=== PATIENT | female | born 1980 | race American Indian/Alaskan Native ===

== ENCOUNTER 2017-07-09 22:37 | Emergency (ER) | payer SELFPAY ==
[2017-07-10 00:11] LABS: BUN/Creatinine Ratio 15.71; Blood Urea Nitrogen 11 mg/dL (7-17); Calcium 9.1 mg/dL (8.4-10.2); Carbon Dioxide 27 mmol/L (22-30); Chloride 100.4 mmol/L (98-107); Glucose 96 mg/dL (65-100); Potassium 4.1 mmol/L (3.6-5.0); Sodium 139 mmol/L (137-145)
[2017-07-10 00:14] LABS: Basophils % (Auto) 0.2 % (0.0-1.8); Eosinophils % (Auto) 0.6 % (0.0-4.3); Hematocrit 38.8 % (30.3-42.9); Hemoglobin 12.3 gm/dl (10.1-14.3); Mean Corpuscular HGB Conc 32 % (30-34); Mean Corpuscular Volume 79 fl (79-97); Platelet Count 284 K/mm3 (140-440); Red Blood Count 4.94 M/mm3 (3.65-5.03); Red Cell Distribution Width 13.7 % (13.2-15.2); White Blood Count 12.8 K/mm3 (4.5-11.0)
[2017-07-10 00:21] LABS: Mean Corpuscular Hemoglobin 25 pg (28-32)
[2017-07-10 00:24] LABS: Anion Gap 16 mmol/L
[2017-07-10 00:28] LABS: Bilirubin,Urine NEG (Negative); Blood,Urine MOD (Negative); Ketones,Urine NEG (Negative); Leukocyte Esterase,Urine TR (Negative); Mucus,Urine FEW /HPF; Nitrite,Urine NEG (Negative); Protein,Urine <15 mg/dL mg/dL (Negative); Urobilinogen,Urine < 2.0 mg/dL (<2.0)
[2017-07-10] MEDS ORDERED: TYLENOL PO ONE (02:21)
[2017-07-10] MEDS ORDERED: TYLENOL ONE (02:26)
--- NOTE | 2017-07-10 03:32 | Ultrasound Report ---
FINAL REPORT PROCEDURE: US TRANSVAGINAL TECHNIQUE: Real-time transabdominal sonography in multiple planes of the pelvis was performed. The pelvic structures, especially the ovaries were not optimally visualized. Transvaginal sonography was then performed to better evaluate the structures and/or abnormalities described below with image documentation. CPT 11943 and 33926 HISTORY: lower abd pain/vag spotting COMPARISON: No prior studies are available for comparison. FINDINGS: UTERUS Size: 8.3 x 3.6 x 3.9 cm. Endometrial thickness: 12 mm. The endometrial pattern is thickened with complex echogenicity. There appears to be a mass within the region of the cervical os. This measures approximately 3.2 x 1.3 x 2 centimeters. Further evaluation of this region with appropriate pelvic evaluation should be entertained. Orientation: anteverted. Cervix: Normal. Fibroids/masses: There appears to be a mixed echogenic area in the cervical os region which may represent a mass.. RIGHT Ovary: 3.6 x 2.8 x 3.1 cm. Appearance: The echogenicity is normal. No masses.. LEFT Ovary: 2.7 x 2.5 x 2.5 cm. Appearance: The echogenicity is normal. No masses.. Pelvic fluid: None. Other: None. IMPRESSION: There is a thickened endometrial pattern with complex echogenicity. There appears to be a mass in the region of the cervical os this measures approximately 3.2 x 1.3 x 2 centimeters. Further evaluation of this region with appropriate pelvic evaluation should be entertained.
--- NOTE | 2017-07-10 03:33 | Ultrasound Report ---
FINAL REPORT PROCEDURE: Pelvic ultrasound transabdominal and transvaginal TECHNIQUE: Real-time transabdominal sonography in multiple planes of the pelvis was performed. The pelvic structures, especially the ovaries were not optimally visualized. Transvaginal sonography was then performed to better evaluate the structures and/or abnormalities described below with image documentation. CPT 70546 and 79516 HISTORY: lower abd pain/vag spotting COMPARISON: No prior studies are available for comparison. FINDINGS: UTERUS Size: 8.3 x 3.6 x 3.9 cm. Endometrial thickness: 12 mm. The endometrial pattern is thickened with complex echogenicity. There appears to be a mass within the region of the cervical os. This measures approximately 3.2 x 1.3 x 2 centimeters. Further evaluation of this region with appropriate pelvic evaluation should be entertained. Orientation: anteverted. Cervix: Normal. Fibroids/masses: There appears to be a mixed echogenic area in the cervical os region which may represent a mass.. RIGHT Ovary: 3.6 x 2.8 x 3.1 cm. Appearance: The echogenicity is normal. No masses.. LEFT Ovary: 2.7 x 2.5 x 2.5 cm. Appearance: The echogenicity is normal. No masses.. Pelvic fluid: None. Other: None. IMPRESSION: There is a thickened endometrial pattern with complex echogenicity. There appears to be a mass in the region of the cervical os this measures approximately 3.2 x 1.3 x 2 centimeters. Further evaluation of this region with appropriate pelvic evaluation should be entertained.
[2017-07-10] MEDS ORDERED: MOTRIN PO ONE (04:48)
[2017-07-10] MEDS ORDERED: MORPHINE IV ONE ×2 (09:18→11:40)
[2017-07-10] MEDS ORDERED: NACL 0.9% 1000 ML 1,000 ML IV ONE (09:18)
--- NOTE | 2017-07-10 10:09 | Emergency Department Report ---
HPI - General Chief Complaint: Vaginal Bleeding Time Seen by Provider: 07/10/17 09:03 - HPI HPI: This is a 36 year-old female presents to the emergency department with a complaint of a 2 day history of lower abdominal pain and some vaginal bleeding/spotting. The patient's last menstrual period was in mid January and she has not had any vaginal bleeding since that time. She began having some sharp pain with radiation towards the back. It is associated with some nausea without vomiting. She took a home test 2 weeks ago and it was negative at that time. She denies any past medical history. Her primary care doctor is a Dr. Hamilton. She does not currently have an acute [facility] and has not had a Pap smear in about 2 years. She is not taking anything for her symptoms prior presentation. No recent travel or sick contacts at home. ED Past Medical Hx - Past Medical History Previous Medical History?: No - Surgical History Past Surgical History?: Yes Additional Surgical History: ORAL - Social History Smoking Status: Never Smoker Substance Use Type: Alcohol - Medications Home Medications: Home Medications Medication Instructions Recorded Confirmed Last Taken Type HYDROcodone/APAP 5-325 [[place] 1 each PO Q6HR PRN #10 tablet 07/10/17 Unknown Rx 5/325] ED Review of Systems ROS: Stated complaint: AB PAIN Other details as noted in HPI Comment: All other systems reviewed and negative Constitutional: denies: chills, fever Eyes: denies: eye pain, eye discharge, vision change ENT: denies: ear pain, throat pain Respiratory: denies: cough, shortness of breath, wheezing Cardiovascular: denies: chest pain, palpitations Gastrointestinal: abdominal pain, nausea. denies: vomiting Genitourinary: other (vaginal bleeding). denies: dysuria, discharge Musculoskeletal: back pain. denies: arthralgia Skin: denies: rash, lesions Neurological: denies: headache, weakness, paresthesias Physical Exam - Physical Exam Vital Signs: Vital Signs 07/09/17 07/10/17 07/10/17 23:25 06:39 09:00 Temperature 98.3 F 98.9 F Pulse Rate 87 79 83 Respiratory 16 12 16 Rate Blood Pressure 146/90 127/77 Blood Pressure 120/77 [Right] O2 Sat by Pulse 100 100 100 Oximetry Physical Exam: GENERAL: The patient is well-developed well-nourished. HENT: Normocephalic. Atraumatic. Patient has moist mucous membranes. EYES: Extraocular motions are intact. Pupils equal reactive to light bilaterally. NECK: Supple. Trachea is midline. CHEST/LUNGS: Clear to auscultation. There is no respiratory distress noted. HEART/CARDIOVASCULAR: Regular. There is no tachycardia. There is no gallop rub or murmur. ABDOMEN: Abdomen is soft, nontender. Unable to reproduce lower abdominal and/ or pelvic discomfort to palpation. No guarding or rebound tenderness. Patient has normal bowel sounds. There is no abdominal distention. SKIN: Skin is warm and dry. NEURO: The patient is awake, alert, and oriented. The patient is cooperative. The patient has no focal neurologic deficits. The patient has normal speech and gait. MUSCULOSKELETAL: There is no tenderness or deformity. There is no limitation range of motion. There is no evidence of acute injury. : There is no vaginal or cervical lesions seen. There is a small amount of blood seen in the vaginal vault. ED Course Vital Signs 07/09/17 07/10/17 07/10/17 23:25 06:39 09:00 Temperature 98.3 F 98.9 F Pulse Rate 87 79 83 Respiratory 16 12 16 Rate Blood Pressure 146/90 127/77 Blood Pressure 120/77 [Right] O2 Sat by Pulse 100 100 100 Oximetry ED Medical Decision Making - Lab Data Result diagrams: 07/09/17 23:37 07/09/17 23:37 - Radiology Data Radiology results: report reviewed PROCEDURE: US TRANSVAGINAL TECHNIQUE: Real-time transabdominal sonography in multiple planes of the pelvis was performed. The pelvic structures, especially the ovaries were not optimally visualized. Transvaginal sonography was then performed to better evaluate the structures and/or abnormalities described below with image documentation. CPT 71579 and 01524 HISTORY: lower abd pain/vag spotting COMPARISON: No prior studies are available for comparison. FINDINGS: UTERUS Size: 8.3 x 3.6 x 3.9 cm. Endometrial thickness: 12 mm. The endometrial pattern is thickened with complex echogenicity. There appears to be a mass within the region of the cervical os. This measures approximately 3.2 x 1.3 x 2 centimeters. Further evaluation of this region with appropriate pelvic evaluation should be entertained. Orientation: anteverted. Cervix: Normal. Fibroids/masses: There appears to be a mixed echogenic area in the cervical os region which may represent a mass.. RIGHT Ovary: 3.6 x 2.8 x 3.1 cm. Appearance: The echogenicity is normal. No masses.. LEFT Ovary: 2.7 x 2.5 x 2.5 cm. Appearance: The echogenicity is normal. No masses.. Pelvic fluid: None. Other: None. IMPRESSION: There is a thickened endometrial pattern with complex echogenicity. There appears to be a mass in the region of the cervical os this measures approximately 3.2 x 1.3 x 2 centimeters. Further evaluation of this region with appropriate pelvic evaluation should be entertained. CT scan of the abdomen and pelvis with IV contrast: History: Abdominal pain. Findings: Normal lung bases. No pleural pericardial effusion. Normal liver spleen pancreas and gallbladder. Normal adrenals, kidneys and bladder. No free intraperitoneal fluid or. No evidence of adenopathy. Fluid identified in the endometrium. Enlargement in left ovary measuring approximate 4 cm in maximum diameter. Cysts cannot be excluded. The appendix not visualized well no evidence of appendicitis. No evidence of diverticulitis. Gaseous colon with moderate volume stool in colon. No bowel distention. Impression: Moderate amount of fluid in the endometrium. Suspected maybe cysts in the right and left ovary. Transcribed By: PTP Dictated By: JOE GRIMM MD Electronically Authenticated By: JOE GRIMM MD Signed Date/Time: 07/10/17 1053 - Medical Decision Making 36-year-old female presents to the emergency department with a 2 day history of some lower abdominal and/or pelvic discomfort as well as some mild vaginal bleeding. The patient has not had a menstrual cycle in about 4-5 months but her beta hCG is negative for current . The rest labs are mostly unremarkable. A transvaginal ultrasound was done that came back showing concern for a 3 cm endocervical mass. For further evaluation, a CT of the abdomen and pelvis with IV contrast was done that shows ovarian cyst and some endometrial fluid. There was no mass or soft tissue abnormality seen on pelvic examination. Vital signs stable. Patient was given some pain control and will be given multiple referrals for [facility] for further differentiation of these deferring imaging studies. However the patient does appear safe for discharge home at this time. - Differential Diagnosis , fibroids, malignancy, dysfunctional uterine bleeding Critical Care Time: No Critical care attestation.: If time is entered above; I have spent that time in minutes in the direct care of this critically ill patient, excluding procedure time. ED Disposition Clinical Impression: Pelvic pain, Dysfunctional uterine bleeding, Mass of cervix determined by ultrasound Ovarian cyst Qualifiers: Laterality: unspecified laterality Qualified Code(s): N83.209 - Unspecified ovarian cyst, unspecified side Disposition: TO HOME OR SELFCARE Is pt being admited?: No Condition: Stable Instructions: Dysfunctional Uterine Bleeding (ED), Ovarian Cyst (ED), Abdominal Pain (ED) Additional Instructions: Please follow up with an [facility] in the near future regarding your pelvic pain, ovarian cyst, dysfunctional uterine bleeding, and the cervical mass seen on ultrasound. Return to the emergency Department with any worsening of her symptoms or any acute distress. You have been prescribed a medication that is sedating and therefore should not be taken prior to driving, working, and responsible for children and in no way should be mixed with alcohol of any quantity. Prescriptions: HYDROcodone/APAP 5-325 [[place] 5/325] 1 each PO Q6HR PRN #10 tablet PRN Reason: Pain Referrals: [facility] [Primary Care Provider] - 3-5 Days [facility] [Provider Group] - 3-5 Days [facility] [Provider Group] - 3-5 Days [facility] [Provider Group] - 3-5 Days Forms: Work/School Release Form(ED) Time of Disposition: 12:15
--- NOTE | 2017-07-10 10:57 | Cat Scan Report ---
CT scan of the abdomen and pelvis with IV contrast: History: Abdominal pain. Findings: Normal lung bases. No pleural pericardial effusion. Normal liver spleen pancreas and gallbladder. Normal adrenals, kidneys and bladder. No free intraperitoneal fluid or. No evidence of adenopathy. Fluid identified in the endometrium. Enlargement in left ovary measuring approximate 4 cm in maximum diameter. Cysts cannot be excluded. The appendix not visualized well no evidence of appendicitis. No evidence of diverticulitis. Gaseous colon with moderate volume stool in colon. No bowel distention. Impression: Moderate amount of fluid in the endometrium. Suspected maybe cysts in the right and left ovary.
[2017-07-10 13:01] VITALS: BP 108/61
== END 2017-07-10 13:01 | disposition home or self-care (01) ==
LOC: ED 22:37
DX: N83.202 Unspecified ovarian cyst, left side (principal); N83.201 Unspecified ovarian cyst, right side
CPT/HCPCS: 36415; 74177; 76830; 76856; 80048; 81001; 84702; 85025; 96361; 96374; 96376; 99284; J2270; J7030; Q9967; 96375